=== PATIENT | male | born 1950 | race African-American/Black ===

== ENCOUNTER 2018-01-31 11:51 | Emergency (ER) | payer OTHER ==
[~2018-01-31] VITALS: Ht 172.7 cm; Wt 80.0 kg
[2018-01-31] MEDS ORDERED: SODIUM CHLORIDE 0.9% 1,000 ML IV ONE (13:17)
[2018-01-31 14:40] LABS: CLARITY URINE CLEAR (CLEAR); COLOR URINE YELLOW (YELLOW); KETONES URINE TRACE (NEGATIVE); LEUKOCYTE ESTERASE URINE NEGATIVE (NEGATIVE); NITRITE URINE NEGATIVE (NEGATIVE); OCCULT BLOOD URINE TRACE (NEGATIVE); PH URINE 5.5 (4.5-8.0); PROTEIN URINE TRACE (NEGATIVE); SPECIFIC GRAVITY URINE 1.021 (1.005-1.030)
[2018-01-31 14:54] LABS: BASOPHILS % 0.5 % (0.0-2.0); EOSINOPHILS % 1.1 % (0.0-5.0); HEMATOCRIT. 27.9 % (42.0-52.0); LYMPHOCYTES % 21.6 % (20.0-50.0); MEAN CORPUSCULAR HEMOGLOBIN 23.8 pg (28.0-32.0); MEAN CORPUSCULAR VOLUME 73.3 fL (80.0-94.0); MONOCYTES % 12.6 % (2.0-8.0); NEUTROPHILS % 64.2 % (40.0-76.0); PLATELET 127 x1000/uL (130-400); RED CELL DISTRIBUTION WIDTH 16.2 % (11.6-14.6)
[2018-01-31 15:00] LABS: PROTHROMBIN TIME 10.2 sec (9.1-11.1)
[2018-01-31 15:09] LABS: CHLORIDE 106 mEq/L (98-107)
[2018-01-31] MEDS ORDERED: RISP1TAB26 PO (17:08)
[2018-01-31] MEDS ORDERED: FLUO40CA49 PO (17:08)
[2018-01-31] MEDS ORDERED: TRAZODONE (17:08)
[2018-01-31] MEDS ORDERED: KLONOPIN (17:08)
[2018-01-31] MEDS ORDERED: BUPR300T54 PO (17:08)
[2018-01-31] MEDS ORDERED: CLONIDINE 0.2MG TABLET PO ONE (20:15)
[2018-01-31 21:12] VITALS: BP 163/95
== END 2018-01-31 21:50 | disposition short-term general hospital (02) ==
LOC: ER 11:51 → EDBEDREQSVC 17:11 → EDBEDREQ 17:11 → CANBEDREQ 20:16 → CANRESERV 20:20 → ENRESERV 20:20 → ER 21:50
DX: R53.1 Weakness (principal); E87.2 Acidosis; D69.6 Thrombocytopenia, unspecified; I10 Essential (primary) hypertension
CPT/HCPCS: 36415; 70450; 71045; 80053; 81003; 83605; 84145; 84484; 85025; 85610; 87040; 87086; 93005; 96360; 99285; J7030; 99284

== ENCOUNTER 2018-03-13 13:09 | Emergency (ER) | payer OTHER ==
[~2018-03-13] VITALS: Ht 177.8 cm; Wt 97.7 kg
[~2018-03-13 13:09] MED LIST: BUPR300T54 PO; FLUO40CA49 PO; KLONOPIN; RISP1TAB26 PO; TRAZODONE
[2018-03-13] MEDS ORDERED: SODIUM CHLORIDE 0.9% 1,000 ML IV ONE ×2 (14:08→21:30)
[2018-03-13 15:00] LABS: BASOPHILS % 0.3 % (0.0-2.0); EOSINOPHILS % 0.3 % (0.0-5.0); HEMATOCRIT. 38.2 % (42.0-52.0); HEMOGLOBIN. 12.6 g/dL (14.0-18.0); MEAN CORPUSCULAR HEMOGLOBIN 23.3 pg (28.0-32.0); MEAN CORPUSCULAR VOLUME 70.2 fL (80.0-94.0); MEAN PLATELET VOLUME 7.6 fl (7.4-10.4); MONOCYTES % 11.4 % (2.0-8.0); PLATELET 285 x1000/uL (130-400); RED BLOOD CELL COUNT 5.43 mill/uL (4.7-6.1); RED CELL DISTRIBUTION WIDTH 15.5 % (11.6-14.6)
[2018-03-13 15:07] LABS: CHLORIDE 101 mEq/L (98-107)
[2018-03-13 15:10] LABS: D-DIMER 2.12 mg/L FEU (<0.50); INR 1.1; PROTHROMBIN TIME 10.9 sec (9.1-11.1)
[2018-03-13 18:19] LABS: CLARITY URINE CLEAR (CLEAR); COLOR URINE YELLOW (YELLOW); KETONES URINE 1+ (NEGATIVE); LEUKOCYTE ESTERASE URINE NEGATIVE (NEGATIVE); NITRITE URINE NEGATIVE (NEGATIVE); OCCULT BLOOD URINE 2+ (NEGATIVE); PH URINE 7.5 (4.5-8.0); PROTEIN URINE NEGATIVE (NEGATIVE); SPECIFIC GRAVITY URINE 1.008 (1.005-1.030)
[2018-03-13] MEDS ORDERED: IOHEXOL-350 100 ML BOTTLE ONE (18:39)
[2018-03-13] MEDS ORDERED: ACYCLOVIR INJ 500 MG in DEXT 5% WATER 100 ML IV SCH (19:45)
[2018-03-13 22:01] VITALS: BP 165/80
== END 2018-03-13 22:12 | disposition short-term general hospital (02) ==
LOC: ER 13:09 → EDBEDREQ 14:10 → ER 22:12 → CANBEDREQ 23:38
DX: K56.699 Other intestinal obstruction unspecified as to partial versus complete obstruction (principal); B02.9 Zoster without complications; E78.00 Pure hypercholesterolemia, unspecified; I10 Essential (primary) hypertension; R06.02 Shortness of breath; R41.82 Altered mental status, unspecified; Z98.890 Other specified postprocedural states; Z88.6 Allergy status to analgesic agent
CPT/HCPCS: 36415; 71045; 71275; 74176; 80053; 81003; 82962; 83605; 83880; 84484; 85025; 85379; 85610; 87040; 87086; 87804; 93005; 96361; 96365; 96366; 99285; J0133; J7030; Q9967; J7060